=== PATIENT | female | born 2005 | race Caucasian/White ===

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

== ENCOUNTER 2024-10-31 10:50 | Emergency (ER) | payer MEDICAID ==
[~2024-10-31] VITALS: Ht 165.1 cm; Wt 113.6 kg
[2024-10-31 10:54] VITALS: BP 130/103; PULSE 93; RESP 18; TEMP 97.6; O2SAT 99
--- NOTE | 2024-10-31 11:05 | Physician Documentation ---
History of Present Illness Chief Complaint: Abdominal Pain Stated Complaint: MENSTRAL COMPLICATIONS/PAIN Primary Medical Doctor: NONE HPI Year old female with a history of PCOS complains of one month of bilateral pelvic pain. She states that today the pain became more unbearable therefore she presents to the ED. Denies any fevers denies any vomiting. Day of Onset: October 31, 2024 Medication Reconciliation Allergies: Coded Allergies: No Known Allergies (Unverified , 10/31/24) Scheduled Albuterol Sulfate (Ventolin Hfa), 2 PUFFS INH Q4HPRN Nitrofurantoin Macrocrystal (Nitrofurantoin), 1 CAP PO BID ONDANSETRON ODT 4mg tablet (Ondansetron Odt), 1 TABLET PO Q6H Past Medical History Past Medical History: Asthma, *GI/HEPATOBILIARY* Past Surgical History: noncontributory Alcohol Use: Occasionally Drug Use: marijuana Physical Exam Vital Signs: Temperature: 97.6, Source: Temporal, Heart Rate: 93, Respiratory Rate: 18, BP: 130/103, Pulse Oximetry: 99, Weight: 113.640 Progress Results/Orders Results/Orders Vital Signs 10/31/24 10:54 Temp 97.6 Pulse 93 Resp 18 B/P (MAP) 130/103 Pulse Ox 99 Departure Impression: Primary Impression: Abdominal pain Referrals: NO PRIMARY CARE PROVIDER (PCP) Prescriptions ONDANSETRON ODT 4mg tablet (ONDANSETRON ODT) 4 Mg Tab.rapdis 1 TABLET PO Q6H, #12 TABLET Prov: MARIBEL BRAR MD 10/31/24 Nitrofurantoin Macrocrystal (Nitrofurantoin) 100 Mg Capsule 1 CAP PO BID, #14 CAP Prov: MARIBEL BRAR MD 10/31/24 Signature Scribe Signature: d Attestation: The note accurately reflects work and decisions made by me.Rolo Grayson NP 10/31/24 17:55 ROLO HERNANDEZ NP October 31, 2024 11:05
[2024-10-31 11:40] LABS: BASOPHILS % (AUTO) 0.6 % (0-1); EOSINOPHILS # (AUTO) 0.3 X10'3 (0-0.9); EOSINOPHILS % (AUTO) 4.1 % (0-6); HEMOGLOBIN 12.6 g/dl (12.0-16.0); LYMPHOCYTES # (AUTO) 1.8 X10'3 (1.1-4.8); LYMPHOCYTES % (AUTO) 28.4 % (21-51); MEAN CORPUSCULAR HEMOGLOBIN 26.3 PG (27.0-31.0); MEAN CORPUSCULAR HGB CONC 32.3 g/dL (33.0-36.5); MEAN CORPUSCULAR VOLUME 81.6 FL (78-98); MONOCYTES # (AUTO) 0.3 X10'3 (0-0.9); MONOCYTES % (AUTO) 5.4 % (2-12); NEUTROPHILS # (AUTO) 3.9 X10'3 (1.8-7.7); NEUTROPHILS % (AUTO) 61.5 % (42-75); PLATELET COUNT 298 X10'3 (140-440); RED BLOOD COUNT 4.78 X10'6 (4.20-5.60); WHITE BLOOD COUNT 6.3 X10'3 (4.5-11.0)
[2024-10-31 11:55] LABS: ALANINE AMINOTRANSFERASE 12 U/L (12-78); ALBUMIN 3.2 G/DL (3.4-5.0); ALBUMIN/GLOBULIN RATIO 0.9 (1.1-1.5); ALKALINE PHOSPHATASE 74 IU/L (46-116); ANION GAP 5 (8-16); ASPARTATE AMINO TRANSFERASE 9 U/L (10-37); BILIRUBIN,TOTAL 0.2 MG/DL (0.1-1.0); BLOOD UREA NITROGEN 8 MG/DL (7-18); CALCIUM 8.3 MG/DL (8.5-10.1); CHLORIDE 109 MMOL/L (99-107); GLUCOSE 91 MG/DL (70-104); POTASSIUM 4.4 MMOL/L (3.5-5.1); SODIUM 141 MMOL/L (135-145); TOTAL CARBON DIOXIDE 26.9 MMOL/L (24-32); TOTAL PROTEIN 6.8 G/DL (6.4-8.2); eCRCL 100 ML/MIN; eGFR > 90 ML/MIN
[2024-10-31 12:03] LABS: BILIRUBIN,URINE NEGATIVE (Neg); CLARITY,URINE CLOUDY (Clear); COLOR,URINE YELLOW (Yellow); GLUCOSE, URINE NEGATIVE (Neg); KETONES,URINE NEGATIVE (Neg); LEUKOCYTE ESTERASE ,URINE TRACE (Neg); NITRITES, URINE POSITIVE (Neg); OCCULT BLOOD,URINE NEGATIVE (Neg); PROTEIN,URINE NEGATIVE (Neg); UA COLLECTION TYPE VOIDED; UROBILINOGEN,URINE 0.2 E.U/dL (0.2-1.0)
[2024-10-31 12:12] LABS: BACTERIA,URINE 3+ /HPF (Neg); RBC,URINE 0-2 /HPF (0-2); SQUAMOUS EPITHELIAL CELL,UR MANY /LPF (FEW); WBC,URINE 0-4 /HPF (0-4)
--- NOTE | 2024-10-31 12:24 | Physician Documentation ---
History of Present Illness Chief Complaint: Abdominal Pain Stated Complaint: MENSTRAL COMPLICATIONS/PAIN Time Seen by MD: 11:04 Primary Medical Doctor: NONE HPI 19 year old female reports that her "uterus and ovaries" are hurting. Has difficulty being more specific about her symptoms but reports that she has been diagnosed with PCOS in the past and this feels similar. Denies fever, N/V/D, urinary symptoms. Is eating and drinking without difficulty. Last Menstrual Period: Sep 02, 2024 Medication Reconciliation Allergies: Coded Allergies: No Known Allergies (Unverified , 10/31/24) Scheduled Albuterol Sulfate (Ventolin Hfa), 2 PUFFS INH Q4HPRN Past Medical History Past Medical History: Asthma, *GI/HEPATOBILIARY* Past Surgical History: noncontributory Last Menstrual Period: Sep 02, 2024 Alcohol Use: Occasionally Drug Use: marijuana Review of Systems All Other Systems at this time: Reviewed and Negative Physical Exam Vital Signs: RN Vital Signs have been reviewed: Yes, Temperature: 97.6, Source: Temporal, Heart Rate: 93, Respiratory Rate: 18, BP: 130/103, Pulse Oximetry: 99, Weight: 113.640 Physical Exam HEENT: PERRL, moist oral mucosa, EOMI Pulmonary: No respiratory distress GI: nondistended, soft, nontender, no guarding, no rebound MSK: no deformity Skin: w/d/i, no rash Neuro: alert, nonfocal Psych: normal affect Progress Results/Orders Results/Orders Completed Orders - MARIBEL BRAR MD Cbc/Diff (10/31/24 11:18) CMP (10/31/24 11:18) Ua W/Microscopic, Cult If Ind (10/31/24 11:34) Vital Signs 10/31/24 10/31/24 10:54 11:36 Temp 97.6 Pulse 93 Resp 18 B/P (MAP) 130/103 Pulse Ox 99 Laboratory Tests Test 10/31/24 11:31 10/31/24 11:34 White Blood Count 6.3 Red Blood Count 4.78 Hemoglobin 12.6 Hematocrit 39.0 Mean Corpuscular Volume 81.6 Mean Corpuscular Hemoglobin 26.3 L Mean Corpuscular Hemoglobin Concent 32.3 L Red Cell Distribution Width 15.0 H Platelet Count 298 Mean Platelet Volume 8.0 Neutrophils (%) (Auto) 61.5 Lymphocytes (%) (Auto) 28.4 Monocytes (%) (Auto) 5.4 Eosinophils (%) (Auto) 4.1 Basophils (%) (Auto) 0.6 Neutrophils # (Auto) 3.9 Lymphocytes # (Auto) 1.8 Monocytes # (Auto) 0.3 Eosinophils # (Auto) 0.3 Basophils # (Auto) 0.0 CBC Comment Sodium Level 141 Potassium Level 4.4 Chloride Level 109 H Carbon Dioxide Level 26.9 Anion Gap 5 L Blood Urea Nitrogen 8 Creatinine 0.80 Estimated GFR/1.73 m2 > 90 BUN/Creatinine Ratio 10.0 Glucose Level 91 Calcium Level 8.3 L Total Bilirubin 0.2 Aspartate Amino Transf (AST/SGOT) 9 L Alanine Aminotransferase (ALT/SGPT) 12 Alkaline Phosphatase 74 Total Protein 6.8 Albumin 3.2 L Globulin 3.6 Albumin/Globulin Ratio 0.9 L Chemistry Comments Urine Specimen Description Voided Urine Color Yellow Urine Clarity Cloudy Urine pH 6.0 Urine Specific [place] 1.020 Urine Protein Negative Urine Glucose (UA) Negative Urine Ketones Negative Urine Occult Blood Negative Urine Nitrite Positive H Urine Bilirubin Negative Urine Urobilinogen 0.2 Urine Leukocyte Esterase Trace H Urine RBC 0-2 Urine WBC 0-4 Urine Squamous Epithelial Cells Many Urine Bacteria 3+ Urine Culture Indicated Rejected for culture Volume Urine Centrifuged 10 ml Urine Comment Medical Decision Making Findings 19 year old female with nonspecific abdominal pain, benign exam and vitals. Labs were largely unremarkable although her UA was contaminated, it did appear suspicious for UTI. Will Rx Abx and return precautions, have advised follow up with a rubber stamp die inspector for further workup. Patient left without antibiotic prescription, didn't appear to want one. Differential Dx:Considerations: Include: Appendicitis, Cholelithasis, Constipation, Ovarian cyst/torsion, Pancreatitis, Urinary obstruction, Urinary tract infection, Urolithiasis Departure Disposition: 01 HOME / SELF CARE / HOMELESS Impression: Primary Impression: UTI (urinary tract infection) Condition: Stable Discharge Instructions: Urinary Tract Infection, Adult Referrals: NO PRIMARY CARE PROVIDER (PCP) Education Educated: Patient Educated regarding: diagnosis, treatment, prognosis, need for follow up Signature Scribe Signature: . Attestation: MARIBEL GARCIA MD October 31, 2024 12:24
[2024-10-31] MEDS ORDERED: NITR100C PO (13:34)
[2024-10-31] MEDS ORDERED: ONDA-243 PO (13:34)
== END 2024-10-31 12:40 | disposition home or self-care (01) ==
LOC: ER 10:50
DX: R10.2 Pelvic and perineal pain (principal); J45.909 Unspecified asthma, uncomplicated; F12.90 Cannabis use, unspecified, uncomplicated; Z79.899 Other long term (current) drug therapy; Z72.89 Other problems related to lifestyle
CPT/HCPCS: 36415; 80053; 81001; 85025; 99283